=== PATIENT | female | born 1970 ===

== ENCOUNTER 2021-06-06 13:57 | Emergency (ER) | payer OTHER ==
[~2021-06-06] VITALS: Ht 162.6 cm; Wt 95.3 kg
[2021-06-06] MEDS ORDERED: SYNTHROID50 MCG PO (14:10)
[2021-06-06] MEDS ORDERED: GLUMETZA500 MG PO (14:10)
== END 2021-06-06 19:25 | disposition home or self-care (01) ==
LOC: ER 13:57
DX: R10.9 Unspecified abdominal pain (principal); R16.2 Hepatomegaly with splenomegaly, not elsewhere classified; K76.0 Fatty (change of) liver, not elsewhere classified

== ENCOUNTER 2021-06-21 07:16 | Day surgery (SDC) | payer OTHER ==
[~2021-06-21 07:16] MED LIST: GLUMETZA500 MG PO; SYNTHROID50 MCG PO
[2021-06-21] MEDS ORDERED: NEURONTIN600 M1 PO (15:59)
== END 2021-06-22 00:40 | disposition home or self-care (01) ==
LOC: CIR.AMB 07:16
PROVIDERS: ATTEND Surgery
DX: K80.10 Calculus of gallbladder with chronic cholecystitis without obstruction (principal); Z20.822 Contact with and (suspected) exposure to COVID-19

== ENCOUNTER 2022-04-05 09:56 | Emergency (ER) | payer OTHER ==
[~2022-04-05] VITALS: Ht 162.6 cm; Wt 99.8 kg
[~2022-04-05 09:56] MED LIST changes: +NEURONTIN600 M1 PO
[2022-04-05] MEDS ORDERED: TAMS0.4C PO (18:12)
== END 2022-04-05 18:49 | disposition home or self-care (01) ==
LOC: ER 09:56
DX: N20.0 Calculus of kidney (principal); Z91.040 Latex allergy status; Z88.2 Allergy status to sulfonamides; Z88.0 Allergy status to penicillin; Z88.6 Allergy status to analgesic agent; Z20.822 Contact with and (suspected) exposure to COVID-19

== ENCOUNTER 2022-12-10 10:12 | Outpatient (CLI) | payer OTHER ==
[~2022-12-10 10:12] MED LIST changes: +TAMS0.4C PO
== END 2022-12-10 10:20 | disposition home or self-care (01) ==
LOC: SONOGRAMA 10:12
PROVIDERS: ATTEND Pathology Anatomic Pathology & Clinical Pathology
DX: D34 Benign neoplasm of thyroid gland (principal); E04.9 Nontoxic goiter, unspecified